=== PATIENT | female | born 1995 | race Caucasian/White ===

== ENCOUNTER 2016-10-11 03:44 | Emergency (ER) ==
[2016-10-11 04:22] VITALS: BP 126/82; TEMP 98.5; BMI 36.0
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
[2016-10-11] MEDS ORDERED: ZOFRAN 4 MG/2 ML IVP STA (05:02)
[2016-10-11] MEDS ORDERED: MORPHINE 4 MG/ML SYRINGE IVP STA (05:02)
[2016-10-11 05:26] LABS: SERUM PREGNANCY INTERNAL QC INTERNAL QC VALID
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
[2016-10-11 07:20] LABS: ALBUMIN 3.9 g/dL (3.4-5.0); ALBUMIN/GLOBULIN RATIO 1.3; ANION GAP 14.9; BILIRUBIN,TOTAL 0.48 mg/dL (0.00-1.20); BUN/CREATININE RATIO 13.4; CALCIUM 9.2 mg/dL (8.2-10.2); CREATININE 0.97 mg/dL (0.60-1.30); POTASSIUM 3.9 mmol/L (3.5-5.10); TOTAL PROTEIN 6.9 g/dL (6.4-8.2)
[2016-10-11] MEDS ORDERED: NEXT CHOICE ONE DOSE PO STA (08:24)
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
[2016-10-11 09:06] LABS: BASOPHILS # (AUTO) 0.1 K/uL (0-0.2); BASOPHILS % (AUTO) 0.4 % (0.0-3.0); EOSINOPHILS # (AUTO) 0.1 K/ul (0.0-0.7); EOSINOPHILS % (AUTO) 1.2 % (0.0-7.0); HEMATOCRIT 37.5 % (37.0-47.0); HEMOGLOBIN 12.6 g/dl (12.0-16.0); IMMATURE GRANULOCYTE % (AUTO) 0.3 % (0.0-5.0); LYMPHOCYTES # (AUTO) 2.1 K/uL (0.60-3.4); LYMPHOCYTES % (AUTO) 18.1 (10.0-50.0); MEAN CORPUSCULAR HEMOGLOBIN 29.4 pg (27.0-31.0); MEAN CORPUSCULAR HGB CONC 33.6 (31.8-35.4); MEAN CORPUSCULAR VOLUME 87.4 fl (81.0-99.0); MONOCYTES # (AUTO) 0.8 K/uL (0.4-2.0); MONOCYTES % (AUTO) 6.5 (0-10); NEUTROPHILS # (AUTO) 8.5 K/ul (2.0-6.9); NEUTROPHILS % (AUTO) 73.5; PLATELET COUNT 244 10^3/uL (140-440); RED BLOOD COUNT 4.29 10^6/ul (4.20-5.40); WHITE BLOOD COUNT 11.63 K/ul (4.6-10.2)
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
[2016-10-11] MEDS ORDERED: LIDOCAINE 1 % AMP 5 ML (SUTURES) IM STA (09:09)
[2016-10-11] MEDS ORDERED: ROCEPHIN IM STA (09:09)
[2016-10-11 09:12] LABS: BILIRUBIN,URINE Negative (NEGATIVE); KETONES,URINE Trace (NEGATIVE); LEUKOCYTE ESTERASE ,URINE Negative (NEGATIVE); NITRITE,URINE Negative (NEGATIVE); PH,URINE 5.5 (5-9); PROTEIN,URINE Negative (NEGATIVE); URINE, BLOOD Negative (NEGATIVE)
[2016-10-11 09:13] LABS: ADD URINE MICROSCOPIC NO
[2016-10-13 08:20] LABS: HIV ANTIBODIES QUALITATIVE NON REACTIVE (Nonreactive)
== END 2016-10-11 10:00 | disposition home or self-care (01) ==
LOC: ED 03:44
DX: T74.21XA Adult sexual abuse, confirmed, initial encounter (principal); S19.9XXA Unspecified injury of neck, initial encounter; S40.022A Contusion of left upper arm, initial encounter; S40.021A Contusion of right upper arm, initial encounter; S80.12XA Contusion of left lower leg, initial encounter; S80.11XA Contusion of right lower leg, initial encounter; S20.212A Contusion of left front wall of thorax, initial encounter; S20.02XA Contusion of left breast, initial encounter; R52 Pain, unspecified; Y07.01 Husband, perpetrator of maltreatment and neglect; Y04.2XXA Assault by strike against or bumped into by another person, initial encounter
CPT/HCPCS: 36415; 80053; 81001; 84703; 85025; 86701; 87800; 96374; 96375; 99285

== ENCOUNTER 2016-10-23 16:18 | Outpatient (CLI) ==
[2016-10-23 16:25] LABS: BILIRUBIN,URINE Negative (NEGATIVE); KETONES,URINE Negative (NEGATIVE); LEUKOCYTE ESTERASE ,URINE 2+ (NEGATIVE); NITRITE,URINE Negative (NEGATIVE); PH,URINE 5.5 (5-9); PROTEIN,URINE 1+ (NEGATIVE); URINE, BLOOD Trace-lysed (NEGATIVE)
[2016-10-23 16:29] LABS: ADD URINE MICROSCOPIC YES
[2016-10-23 16:30] LABS: BACTERIA,URINE 3+ (NOT PRESENT)
== END 2016-10-23 16:19 | disposition home or self-care (01) ==
LOC: LAB 16:18
PROVIDERS: ATTEND Nurse Practitioner Family
DX: N89.8 Other specified noninflammatory disorders of vagina (principal)
CPT/HCPCS: 81001; 87086; 87800

== ENCOUNTER 2017-02-19 19:00 | Emergency (ER) ==
[2017-02-19 19:01] VITALS: BMI 36.0
[2017-02-19 19:20] VITALS: BP 125/80; TEMP 98.5
[2017-02-19 19:29] LABS: BILIRUBIN,URINE Negative (NEGATIVE); KETONES,URINE Negative (NEGATIVE); LEUKOCYTE ESTERASE ,URINE Negative (NEGATIVE); NITRITE,URINE Negative (NEGATIVE); PH,URINE 6.5 (5-9); PROTEIN,URINE Negative (NEGATIVE); URINE, BLOOD Negative (NEGATIVE)
[2017-02-19 19:30] LABS: ADD URINE MICROSCOPIC NO; URINE PREGNANCY INTERNAL QC INTERNAL QC VALID
[2017-02-19 19:44] LABS: KOH PREP NO FUNGAL ELEMENTS (NOT PRESENT); WBC NONE SEEN (FEW)
[2017-02-19] MEDS ORDERED: ROCEPHIN IM STA (19:53)
[2017-02-19] MEDS ORDERED: LIDOCAINE 1 % AMP 5 ML (SUTURES) IM STA (19:53)
[2017-02-19] MEDS ORDERED: ZITHROMAX PO STA (19:53)
--- NOTE | 2017-02-19 19:56 | ED.PDOC ---
General ED Provider: Dr. 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 Exam - Vaginal Bleeding Complaint/Exam Onset/Duration: 3 days Symptoms Are: Still present Timing: Intermittent Initial Severity: Mild Current Severity: Mild Aggravating: Reports: None Alleviating: Reports: None Associated Signs and Symptoms: Denies: Dizziness, Lightheadedness, Pale, UTI symptoms, Abdominal pain, Cramping, Generalized pain Ectopic Risk Factors: Reports: None Patient Rh Status: Unknown Related Surgical History: Reports: None Abdominal Findings: Present: None Differential Diagnoses: Vaginitis Review of Systems - Review Of Systems Constitutional: Reports: No symptoms Eyes: Reports: No symptoms Ears, Nose, Mouth, Throat: Reports: No symptoms Respiratory: Reports: No symptoms Cardiac: Reports: No symptoms GI: Reports: No symptoms : Reports: No symptoms Musculoskeletal: Reports: No symptoms Skin: Reports: Lumps, Rash Neurological: Reports: No symptoms Endocrine: Reports: No symptoms Hematologic/Lymphatic: Reports: No symptoms All Other Systems: Reviewed and Negative Past Medical History - Past Medical History Previously Healthy: Yes Endocrine: Reports: None Cardiovascular: Reports: None Respiratory: Reports: None Hematological: Reports: None Gastrointestinal: Reports: None Genitourinary: Reports: None Neuro/Psych: Reports: None Musculoskeletal: Reports: None Cancer: Reports: None Last Menstrual Period: 5-6-17 WHICH WAS 1 WEEK LATE AND ONLY LASTED 3 DAYS, IS NORMALLY 5-6 DAYS - Surgical History General Surgical History: Reports: Unknown - Family History Family History: Reports: Unknown - Social History Smoking Status: Never smoker Hx Substance Use: No Alcohol Screening: None Lives: With family - Immunizations Tetanus Shot up to Date: Yes Physical Exam - Physical Exam Appearance: Well-appearing, No pain distress, Well-nourished Eyes: MIGUEL, EOMI, Conjunctiva clear ENT: Ears normal, Nose normal, Oropharynx normal Neck: Supple Respiratory: Airway patent, Breath sounds clear, Breath sounds equal, Respirations nonlabored Cardiovascular: RRR, Pulses normal, No rub, No murmur GI/: Soft, Nontender, No masses, Bowel sounds normal, No Organomegaly Musculoskeletal: Normal strength, ROM intact, No edema, No calf tenderness Skin: Warm, Dry, Normal color Neurological: Sensation intact, Motor intact, Reflexes intact, Cranial nerves intact, Alert, Oriented Psychiatric: Affect appropriate, Mood appropriate Critical Care Note - Critical Care Note Total Time (mins): 0 Course - Course Orders, Labs, Meds: Lab Review 02/19/17 02/19/17 19:15 19:37 Urine Color Yellow Urine Clarity Clear Urine pH 6.5 Ur Specific Downs 1.020 Urine Protein Negative Urine Glucose (UA) Negative Urine Ketones Negative Urine Blood Negative Urine Nitrite Negative Urine Bilirubin Negative Urine Urobilinogen 1.0 Ur Leukocyte Esterase Negative Urine Test Negative Clue Cells (Wet Prep) None seen Trichomonas (Wet Prep) None seen Vaginal WBC None seen CHRISTINE Preparation No fungal elements Orders Category Date Time Status CHRISTINE PREP Stat LAB 02/19/17 19:37 Completed UA [URINALYSIS C & S IF INDICATED] Stat LAB 02/19/17 19:15 Completed URINE Stat LAB 02/19/17 19:15 Completed WET PREP Stat LAB 02/19/17 19:37 Completed Azithromycin [Zithromax] MEDS 02/19/17 19:53 Discontinued 1,000 mg PO ONCE STA Ceftriaxone Sodium [Rocephin] MEDS 02/19/17 19:53 Discontinued 250 mg IM ONCE STA Lidocaine HCl/Pf [Lidocaine 1 % Amp 5 ml (Sutures)] MEDS 02/19/17 19:53 Discontinued 0.9 ml IM ONCE STA Medications Discontinued Medications Generic Name Dose Route Start Last Admin Trade Name Freq PRN Reason Stop Dose Admin Azithromycin 1,000 mg 02/19/17 19:53 Zithromax PO 02/19/17 19:54 ONCE STA Ceftriaxone Sodium 250 mg 02/19/17 19:53 Rocephin IM 02/19/17 19:54 ONCE STA Lidocaine HCl 0.9 ml 02/19/17 19:53 Lidocaine 1 % Amp 5 Ml (Sutures) IM 02/19/17 19:54 ONCE STA Vital Signs: Temp Pulse Resp BP Pulse Ox 02/19/17 19:01 98.5 F 71 16 125/80 96 Departure - Departure Time of Disposition: 19:56 Disposition: HOME SELF-CARE Discharge Problem: Vaginal discharge Instructions: Vaginitis (ED) Condition: Good Pt referred to PMD for follow-up: Yes Additional Instructions: flagyl 250mg tid x 7days plus terazol vag supp qhs x 3 days---f/u with [facility] Allergies/Adverse Reactions: Allergies Latex, Natural Rubber Adverse Reaction (Verified 02/19/17 19:10) BREAK OUT Home Medications: Ambulatory Orders 1 [No Reported Medications] 02/19/17 Disposition Discussed With: Patient
== END 2017-02-19 20:11 | disposition home or self-care (01) ==
LOC: ED 19:00
DX: N89.8 Other specified noninflammatory disorders of vagina (principal)
CPT/HCPCS: 81001; 81025; 87210; 96372; 99283

== ENCOUNTER 2017-05-11 14:57 | Emergency (ER) ==
[2017-05-11 14:57] VITALS: BMI 36.0
[2017-05-11 15:03] VITALS: BP 132/75; TEMP 98.7
--- NOTE | 2017-05-11 15:27 | ED.PDOC ---
General ED Provider: Dr. ARYAN MCCRARY Chief Complaint: Sore Throat Stated Complaint: sore throat Time Seen by Physician: 15:00 Mode of Arrival: Walk-In Information Source: Patient Exam Limitations: No limitations Primary Care Provider: DEBORAH ZAMORANO Nursing and Triage Documentation Reviewed and Agree: Yes EENT Complaint Exam - Throat Complaint/Exam Symptoms Are: Still present Timimg: Constant Initial Severity: Moderate Current Severity: Moderate Aggravating: Reports: Eating Alleviating: Reports: None Associated Signs and Symptoms: Denies: Fever, Dysphagia, Drooling, Foreign body sensation, Chills, Cough, Wheezing, Hoarseness, Sinus discomfort, Nasal congestion, Difficulty breathing, Lethargy, Irritability, Decreased activity, Vomiting, Diarrhea, Decreased hearing, Ear drainage Uvula Midline: Yes Chery-tonsillar Fluctuence: No Scarlatinaform Rash Present: No Stridor Present: No Sinus Tenderness Present: No Tonsillar Hypertrophy Present: No Tonsillar Exudate Present: No Chery-tonsillar Swelling Present: No Adenopathy Present: No Splenomegaly Present: No Review of Systems - Review Of Systems Constitutional: Reports: No symptoms Eyes: Reports: No symptoms Ears, Nose, Mouth, Throat: Reports: Throat pain Respiratory: Reports: No symptoms Cardiac: Reports: No symptoms GI: Reports: No symptoms : Reports: No symptoms Musculoskeletal: Reports: No symptoms Skin: Reports: No symptoms Neurological: Reports: No symptoms Endocrine: Reports: No symptoms Hematologic/Lymphatic: Reports: No symptoms All Other Systems: Reviewed and Negative Past Medical History - Past Medical History Previously Healthy: Yes Endocrine: Reports: None Cardiovascular: Reports: None Respiratory: Reports: None Hematological: Reports: None Gastrointestinal: Reports: None Genitourinary: Reports: None Neuro/Psych: Reports: None Musculoskeletal: Reports: None Cancer: Reports: None Last Menstrual Period: unsure - Surgical History General Surgical History: Reports: Unknown - Family History Family History: Reports: Unknown - Social History Smoking Status: Never smoker Hx Substance Use: No Alcohol Screening: None - Immunizations Tetanus Shot up to Date: Yes Physical Exam - Physical Exam Appearance: Well-appearing, No pain distress, Well-nourished Eyes: MIGUEL, EOMI, Conjunctiva clear ENT: Erythema, Exudate Respiratory: Airway patent, Breath sounds clear, Breath sounds equal, Respirations nonlabored Cardiovascular: RRR, Pulses normal, No rub, No murmur GI/: Soft, Nontender, No masses, Bowel sounds normal, No Organomegaly Musculoskeletal: Normal strength, ROM intact, No edema, No calf tenderness Skin: Warm, Dry, Normal color Neurological: Sensation intact, Motor intact, Reflexes intact, Cranial nerves intact, Alert, Oriented Psychiatric: Affect appropriate, Mood appropriate Critical Care Note - Critical Care Note Total Time (mins): 0 Course - Course Vital Signs: Temp Pulse Resp BP Pulse Ox 05/11/17 14:57 98.7 F 18 L 16 132/75 97 Departure - Departure Time of Disposition: 15:33 Disposition: HOME SELF-CARE Discharge Problem: Sore throat symptom Pharyngitis Qualifiers: Pharyngitis/tonsillitis etiology: unspecified etiology Qualifier Code: (J02.9) Acute pharyngitis, unspecified Instructions: Pharyngitis (ED) Condition: Good Pt referred to PMD for follow-up: Yes Additional Instructions: Please call your Family Physician as soon as possible to schedule a follow-up appointment. Allergies/Adverse Reactions: Allergies Latex, Natural Rubber Adverse Reaction (Verified 02/19/17 19:10) BREAK OUT Home Medications: Ambulatory Orders 1 [No Reported Medications] 02/19/17 Disposition Discussed With: Patient
== END 2017-05-11 15:38 | disposition home or self-care (01) ==
LOC: ED 14:57
DX: J02.9 Acute pharyngitis, unspecified (principal)
CPT/HCPCS: 99282

== ENCOUNTER 2018-01-07 11:49 | Emergency (ER) ==
[2018-01-07 11:53] VITALS: BP 142/82; TEMP 97.9; BMI 35.9
--- NOTE | 2018-01-07 13:55 | CT ---
EXAM: CT cervical spine without contrast. HISTORY: Neck pain COMPARISON: CT cervical spine 10/11/2016 TECHNIQUE: Serial axial images of the cervical spine were obtained from the skull base through the l bryant apices without contrast. These were viewed in multiple planes. FINDINGS: Vertebral bodies demonstrate normal height, disc space and alignment. There is straighten ing of the cervical spine. There is no acute compression fracture or subluxation. The facets and po sterior processes are normal. The odontoid process is unremarkable. The C1 ring is intact. The art iculation of C1 and odontoid process is unremarkable. There is mild mucosal thickening in the left ma xillary sinus. The soft tissues are unremarkable. IMPRESSION: 1. No acute compression fracture or subluxation of the cervical spine. 2. Mild straightening of the cervical spine may be positioning versus muscle spasm. 3. Mild layering fluid in the low left maxillary sinus.
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
== END 2018-01-07 14:17 | disposition home or self-care (01) ==
LOC: ED 11:49
DX: M54.2 Cervicalgia (principal); R51 Headache; S09.92XA Unspecified injury of nose, initial encounter; V89.2XXA Person injured in unspecified motor-vehicle accident, traffic, initial encounter
CPT/HCPCS: 36415; 80053; 81001; 84703; 85025; 99283

== ENCOUNTER 2018-05-31 15:02 | Emergency (ER) ==
[2018-05-31 15:09] VITALS: BP 129/88; TEMP 98.4; BMI 38.1
--- NOTE | 2018-05-31 15:18 | ED.PDOC ---
General ED Provider: Dr. ARYAN MCCRARY Chief Complaint: Rash Stated Complaint: rash Time Seen by Physician: 15:00 Mode of Arrival: Walk-In Information Source: Patient Exam Limitations: No limitations Primary Care Provider: DEBORAH ZAMORANO Nursing and Triage Documentation Reviewed and Agree: Yes Does patient meet sepsis criteria?: No If yes, has appropriate treatment been initiated?: No System Inflammatory Response Syndrome: Not Applicable Sepsis Protocol: For patient's 13 years and over: Temp is 96.8 and below OR 101 and greater Pulse >90 BPM Resp >20/minute Acutely Altered Mental Status Are patient's symptoms suggestive of a new infection, such as: -Pneumonia -Skin, Soft Tissue -Endocarditis -UTI -Bone, Joint Infection -Implantable Device -Acute Abdominal Infection -Wound Infection -Meningitis -Blood Stream Catheter Infection -Unknown Skin Complaint Exam - Skin Rash/Itching Complaint/Exam Onset/Duration: see photos x 2 days Symptoms Are: Still present Initial Severity: Mild Current Severity: Mild Potential Exposures: Reports: Unknown Aggravating: Reports: None Alleviating: Reports: None Associated Signs and Symptoms: Denies: Difficulty breathing, Fever, Chills Skin Findings: Present: Urticaria Differential Diagnoses: Allergic Reaction, Poison [place], Urticaria Review of Systems - Review Of Systems Constitutional: Reports: No symptoms Eyes: Reports: No symptoms Ears, Nose, Mouth, Throat: Reports: No symptoms Respiratory: Reports: No symptoms Cardiac: Reports: No symptoms GI: Reports: No symptoms : Reports: No symptoms Musculoskeletal: Reports: No symptoms Skin: Reports: Rash Neurological: Reports: No symptoms Endocrine: Reports: No symptoms Hematologic/Lymphatic: Reports: No symptoms All Other Systems: Reviewed and Negative Past Medical History - Past Medical History Previously Healthy: Yes Endocrine: Reports: None Cardiovascular: Reports: None Respiratory: Reports: None Hematological: Reports: None Gastrointestinal: Reports: None Genitourinary: Reports: None Neuro/Psych: Reports: None Musculoskeletal: Reports: None Cancer: Reports: None Last Menstrual Period: 2 days - Surgical History General Surgical History: Reports: Unknown - Family History Family History: Reports: Unknown - Social History Smoking Status: Never smoker Hx Substance Use: No Alcohol Screening: None Physical Exam - Physical Exam Appearance: Well-appearing, No pain distress, Well-nourished Eyes: MIGUEL, EOMI, Conjunctiva clear ENT: Ears normal, Nose normal, Oropharynx normal Respiratory: Airway patent, Breath sounds clear, Breath sounds equal, Respirations nonlabored Cardiovascular: RRR, Pulses normal, No rub, No murmur GI/: Soft, Nontender, No masses, Bowel sounds normal, No Organomegaly Musculoskeletal: Normal strength, ROM intact, No edema, No calf tenderness Skin: Warm, Dry (maculopapular rash see photos) Neurological: Sensation intact, Motor intact, Reflexes intact, Cranial nerves intact, Alert, Oriented Psychiatric: Affect appropriate, Mood appropriate Critical Care Note - Critical Care Note Total Time (mins): 0 Course - Course Vital Signs: Temp Pulse Resp BP Pulse Ox 05/31/18 15:03 98.4 F 78 20 129/88 98 Departure - Departure Time of Disposition: 15:18 (seen at all times with PARESH SUAREZ) Disposition: HOME SELF-CARE Discharge Problem: Pruritic rash Instructions: Urticaria (ED) Condition: Good Pt referred to PMD for follow-up: Yes IPMP verified?: No Additional Instructions: Please call your Family Physician as soon as possible to schedule a follow-up appointment. Allergies/Adverse Reactions: Allergies Latex, Natural Rubber Adverse Reaction (Verified 05/31/18 15:10) BREAK OUT Home Medications: Ambulatory Orders Amoxicillin [Amoxil] 500 mg PO Q8HR 05/31/18 Disposition Discussed With: Patient
== END 2018-05-31 15:34 | disposition home or self-care (01) ==
LOC: ED 15:02
DX: R21 Rash and other nonspecific skin eruption (principal); L29.9 Pruritus, unspecified
CPT/HCPCS: 99282

== ENCOUNTER 2018-08-11 20:24 | Emergency (ER) ==
[2018-08-11 20:35] VITALS: BP 127/93; TEMP 99.3; BMI 38.8
[2018-08-11] MEDS ORDERED: PYRIDIUM PO STA (20:46)
[2018-08-11] MEDS ORDERED: ZITHROMAX PO STA (20:49)
--- NOTE | 2018-08-11 20:53 | ED.PDOC ---
General ED Provider: Dr. ALBERT DOMINGO Chief Complaint: Urinary Problem Stated Complaint: Patient is a 23 year old female who complains of Buring on urination and suprapubic pain for the past two days. States that her told her that he is being treated for chlamydia Time Seen by Physician: 20:47 Mode of Arrival: Walk-In Information Source: Patient Exam Limitations: No limitations Primary Care Provider: DEBORAH ZAMORANO Nursing and Triage Documentation Reviewed and Agree: Yes Does patient meet sepsis criteria?: No System Inflammatory Response Syndrome: Not Applicable Sepsis Protocol: For patient's 13 years and over: Temp is 96.8 and below OR 101 and greater Pulse >90 BPM Resp >20/minute Acutely Altered Mental Status Are patient's symptoms suggestive of a new infection, such as: -Pneumonia -Skin, Soft Tissue -Endocarditis -UTI -Bone, Joint Infection -Implantable Device -Acute Abdominal Infection -Wound Infection -Meningitis -Blood Stream Catheter Infection -Unknown Complaint Exam - UTI Female Complaint/Exam Patient Complains of: Reports: Painful urination Onset/Duration: 2 days Symptoms Are: Still present Timing: Constant Initial Severity: Moderate Current Severity: Moderate Location of Pain: Reports: Suprapubic Associated Signs and Symptoms: Denies: Fever, Chills, Flank pain, Dyspareunia, Vaginal discharge Patient Rh Status: Unknown CVA Tenderness: No Suprapubic Tenderness: No Differential Diagnoses: STD Review of Systems - Review Of Systems Constitutional: Reports: No symptoms Eyes: Reports: No symptoms Ears, Nose, Mouth, Throat: Reports: No symptoms Respiratory: Reports: No symptoms GI: Reports: Abdominal pain (suprapubic ) : Reports: Burning, Dysuria Skin: Reports: No symptoms Neurological: Reports: Anxiety All Other Systems: Reviewed and Negative Past Medical History - Past Medical History Previously Healthy: Yes Endocrine: Reports: None Cardiovascular: Reports: None Respiratory: Reports: None Hematological: Reports: None Gastrointestinal: Reports: None Genitourinary: Reports: None Neuro/Psych: Reports: None Musculoskeletal: Reports: None Cancer: Reports: None Last Menstrual Period: 07/24/18 - Surgical History General Surgical History: Reports: Tonsillectomy - Family History Family History: Reports: Unknown - Social History Smoking Status: Never smoker Hx Substance Use: No Alcohol Screening: None - Immunizations Tetanus Shot up to Date: Yes Physical Exam - Physical Exam Appearance: Obese Pain Distress: Mild Neck: Supple Respiratory: Airway patent, Breath sounds clear, Breath sounds equal, Respirations nonlabored Cardiovascular: RRR, Pulses normal, No rub, No murmur GI/: Soft, Nontender, No masses, Bowel sounds normal, No Organomegaly Musculoskeletal: Normal strength, ROM intact, No edema, No calf tenderness Skin: Warm, Dry, Normal color Neurological: Sensation intact, Motor intact, Reflexes intact, Cranial nerves intact, Alert, Oriented Psychiatric: Anxious Critical Care Note - Critical Care Note Total Time (mins): 0 Course - Course Orders, Labs, Meds: Lab Review 08/11/18 08/11/18 20:40 20:40 Urine Color Yellow Urine Clarity Cloudy Urine pH 5.5 Ur Specific [place] >=1.030 Urine Protein 1+ Urine Glucose (UA) Negative Urine Ketones Negative Urine Blood 1+ Urine Nitrite Negative Urine Bilirubin Negative Urine Urobilinogen 0.2 Ur Leukocyte Esterase 2+ Urine Microscopic RBC 5-10 Urine Microscopic WBC 10-20 Ur Squamous Epith Cells 0-2 Urine Bacteria Trace Urine Test Negative Orders Category Date Time Status CHLAMYDIA/GC AMPLIFICATION Stat LAB 08/11/18 20:40 Received URINALYSIS C & S IF INDICATED Stat LAB 08/11/18 20:40 Completed URINE CULTURE Stat LAB 08/11/18 21:01 Received URINE Stat LAB 08/11/18 20:40 Completed Azithromycin [Zithromax] MEDS 08/11/18 20:49 Discontinued 1,000 mg PO ONCE STA Nitrofurantoin Monohyd/M-Cryst [Macrobid] MEDS 08/11/18 21:21 Stat 100 mg PO ONCE STA Phenazopyridine HCl [Pyridium] MEDS 08/11/18 20:46 Discontinued 100 mg PO ONCE STA Medications Discontinued Medications Generic Name Dose Route Start Last Admin Trade Name Freq PRN Reason Stop Dose Admin Azithromycin 1,000 mg 08/11/18 20:49 08/11/18 20:53 Zithromax PO 08/11/18 20:50 1,000 mg ONCE STA Administration Phenazopyridine HCl 100 mg 08/11/18 20:46 08/11/18 20:53 Pyridium PO 08/11/18 20:47 100 mg ONCE STA Administration Vital Signs: Temp Pulse Resp BP Pulse Ox 08/11/18 20:25 99.3 F 89 18 127/93 H 97 Departure - Departure Time of Disposition: 21:34 Disposition: HOME SELF-CARE Discharge Problem: Urinary symptoms, Chlamydia contact, untreated Instructions: Urinary Tract Infection in Women (ED), Chlamydia (ED) Condition: Stable Pt referred to PMD for follow-up: Yes IPMP verified?: No Additional Instructions: Take Medications as prescribed Follow up with PCP in 3 days Prescriptions: Nitrofurantoin Monohyd/M-Cryst [Macrobid] 100 mg PO BID #14 capsule Phenazopyridine HCl [Pyridium] 100 mg PO TID PRN #10 tablet PRN Reason: Urinary Burning. Allergies/Adverse Reactions: Allergies Latex, Natural Rubber Adverse Reaction (Verified 05/31/18 15:10) BREAK OUT Penicillins Adverse Reaction (Verified 08/11/18 20:35) Hives Home Medications: Ambulatory Orders Nitrofurantoin Monohyd/M-Cryst [Macrobid] 100 mg PO BID #14 capsule 08/11/18 Phenazopyridine HCl [Pyridium] 100 mg PO TID PRN #10 tablet 08/11/18 Disposition Discussed With: Patient
[2018-08-11 20:55] LABS: URINE PREGNANCY TEST NEGATIVE (NEGATIVE)
[2018-08-11] MEDS ORDERED: MACROBID PO STA (21:21)
== END 2018-08-11 21:33 | disposition home or self-care (01) ==
LOC: ED 20:24
DX: N39.0 Urinary tract infection, site not specified (principal); Z20.2 Contact with and (suspected) exposure to infections with a predominantly sexual mode of transmission
CPT/HCPCS: 36415; 81001; 81025; 87086; 87800; 99283

== ENCOUNTER 2019-01-23 21:27 | Emergency (ER) | payer MEDICAID, OTHER ==
[2019-01-23 21:40] VITALS: BP 119/77; TEMP 98; BMI 41.7
[2019-01-23] MEDS ORDERED: TORADOL PO STA (22:07)
--- NOTE | 2019-01-23 22:07 | ED.PDOC ---
General ED Provider: Dr. OMAR WILKINSON Chief Complaint: Back Pain Stated Complaint: 23 y old patient apparently traveling through with chronic lower back pain. She also needs an inhaler for asthma Time Seen by Physician: 21:40 Mode of Arrival: Walk-In Information Source: Patient Exam Limitations: No limitations Primary Care Provider: DEBORAH ZAMORANO Nursing and Triage Documentation Reviewed and Agree: Yes Does patient meet sepsis criteria?: No System Inflammatory Response Syndrome: Not Applicable Sepsis Protocol: For patient's 13 years and over: Temp is 96.8 and below OR 101 and greater Pulse >90 BPM Resp >20/minute Acutely Altered Mental Status Are patient's symptoms suggestive of a new infection, such as: -Pneumonia -Skin, Soft Tissue -Endocarditis -UTI -Bone, Joint Infection -Implantable Device -Acute Abdominal Infection -Wound Infection -Meningitis -Blood Stream Catheter Infection -Unknown Musculoskeletal Complaint Exam - Back Pain Complaint/Exam Onset/Duration: chronic but worse during driving today Timing: Intermittent Episodes Lasting: Hours Initial Severity: Moderate Current Severity: Mild Location: Reports: Discrete Character: Reports: Aching Aggravating: Reports: Movements Alleviating: Reports: Rest Related History: Reports: Similar episode TAD Risk Factors: Reports: None AAA Risk Factors: Reports: None Cauda Equina Risk Factors: Reports: None Epidural Abcess Risk Factors: Reports: None Related Surgical History: Reports: None Focal Tenderness: No Paraspinal Muscle Tenderness: No Paraspinal Muscle Spasm: No Scoliosis: No Lordosis: No Kyphosis: No Focal Weakness: Present: None Focal Sensory Loss: Present: None Gait: Present: Normal Differential Diagnoses: Strain, Sprain, Other Review of Systems - Review Of Systems Constitutional: Reports: No symptoms Ears, Nose, Mouth, Throat: Reports: No symptoms Respiratory: Reports: No symptoms Cardiac: Reports: No symptoms GI: Reports: No symptoms : Reports: No symptoms Musculoskeletal: Reports: Back pain Skin: Reports: No symptoms Neurological: Reports: No symptoms Endocrine: Reports: No symptoms Hematologic/Lymphatic: Reports: No symptoms All Other Systems: Reviewed and Negative Past Medical History - Past Medical History Previously Healthy: Yes Endocrine: Reports: None Cardiovascular: Reports: None Respiratory: Reports: None Hematological: Reports: None Gastrointestinal: Reports: None Genitourinary: Reports: None Neuro/Psych: Reports: None Musculoskeletal: Reports: None Cancer: Reports: None Last Menstrual Period: 3 weeks ago - Surgical History General Surgical History: Reports: Tonsillectomy - Family History Family History: Reports: Unknown - Social History Smoking Status: Never smoker Hx Substance Use: No Alcohol Screening: None - Immunizations Tetanus Shot up to Date: Yes (2 yrs ago) Physical Exam - Physical Exam Appearance: Well-appearing Ill-appearing: None Pain Distress: None Eyes: MIGUEL ENT: Ears normal Neck: Supple Respiratory: Airway patent, Breath sounds diminished Cardiovascular: Pulses normal, Tachycardia GI/: Soft, Nontender, No masses Musculoskeletal: Normal strength Skin: Warm, Dry Neurological: Sensation intact Psychiatric: Affect appropriate Critical Care Note - Critical Care Note Total Time (mins): 0 Course - Course Orders, Labs, Meds: Orders Category Date Time Status Ketorolac Tromethamine [Toradol] MEDS 01/23/19 22:07 Discontinued 20 mg PO ONCE STA Medications Discontinued Medications Generic Name Dose Route Start Last Admin Trade Name Freq PRN Reason Stop Dose Admin Ketorolac Tromethamine 20 mg 01/23/19 22:07 Toradol PO 01/23/19 22:08 ONCE STA Vital Signs: Temp Pulse Resp BP Pulse Ox 01/23/19 21:28 98 F 69 20 119/77 98 Departure - Departure Time of Disposition: 22:16 Disposition: HOME SELF-CARE Discharge Problem: Lower back pain Instructions: Asthma (ED) Condition: Good Pt referred to PMD for follow-up: Yes IPMP verified?: No Additional Instructions: Use Budesonide as prescribed daily Allergies/Adverse Reactions: Allergies Latex, Natural Rubber Adverse Reaction (Verified 01/23/19 21:40) BREAK OUT Penicillins Adverse Reaction (Verified 01/23/19 21:40) Hives Home Medications: Ambulatory Orders Ibuprofen 800 mg PO BID 01/23/19 Metformin HCl [Glucophage] 500 mg PO BIDWM PRN 01/23/19 Disposition Discussed With: Patient
== END 2019-01-23 22:35 | disposition home or self-care (01) ==
LOC: ED 21:27
DX: M54.5 Low back pain (principal); G89.29 Other chronic pain; J45.909 Unspecified asthma, uncomplicated
CPT/HCPCS: 99282

== ENCOUNTER 2019-02-09 10:46 | Emergency (ER) ==
[2019-02-09 10:50] VITALS: BP 159/78; TEMP 99.2; BMI 40.7
[2019-02-09] MEDS ORDERED: TORADOL IM STA (11:08)
--- NOTE | 2019-02-09 11:08 | ED.PDOC ---
General ED Provider: Dr. OMAR WILKINSON Chief Complaint: Back Pain Stated Complaint: 23 y old female,overweight for age and height developed right sided pain. inr lower back L-S region,gluteal teritury on the same side and continuing towards the right kne and lower thigh.Charline pyriformic tenderness on that side,Pain is not traveling below the knee.She can not contrinue workubg today because og limitation in agility and mobility.No other signs or symptoms. Time Seen by Physician: 10:55 Mode of Arrival: Walk-In Information Source: Patient Exam Limitations: No limitations Primary Care Provider: DEBORAH ZAMORANO Nursing and Triage Documentation Reviewed and Agree: Yes Does patient meet sepsis criteria?: No System Inflammatory Response Syndrome: Not Applicable Sepsis Protocol: For patient's 13 years and over: Temp is 96.8 and below OR 101 and greater Pulse >90 BPM Resp >20/minute Acutely Altered Mental Status Are patient's symptoms suggestive of a new infection, such as: -Pneumonia -Skin, Soft Tissue -Endocarditis -UTI -Bone, Joint Infection -Implantable Device -Acute Abdominal Infection -Wound Infection -Meningitis -Blood Stream Catheter Infection -Unknown Musculoskeletal Complaint Exam - Back Pain Complaint/Exam Onset/Duration: today at am at work Symptoms Are: Still present Timing: Constant Episodes Lasting: Hours Initial Severity: Moderate Current Severity: Moderate Location: Reports: Discrete Character: Reports: Aching Aggravating: Reports: Bending, Walking Alleviating: Reports: Rest Associated Signs and Symptoms: Reports: Weakness, Pain with weight bearing Related History: Reports: Similar episode TAD Risk Factors: Reports: Hypertension AAA Risk Factors: Reports: None Cauda Equina Risk Factors: Reports: None Epidural Abcess Risk Factors: Reports: None Related Surgical History: Reports: None Focal Tenderness: No Paraspinal Muscle Tenderness: Yes Paraspinal Muscle Spasm: Yes Scoliosis: No Lordosis: No Kyphosis: No Focal Weakness: Present: None Focal Sensory Loss: Present: None Gait: Present: Unable Differential Diagnoses: Strain, Sprain, Other Review of Systems - Review Of Systems Constitutional: Reports: No symptoms Eyes: Reports: No symptoms Ears, Nose, Mouth, Throat: Reports: No symptoms Respiratory: Reports: No symptoms Cardiac: Reports: No symptoms GI: Reports: No symptoms : Reports: No symptoms Musculoskeletal: Reports: Back pain, Muscle pain, Muscle stiffness Skin: Reports: No symptoms Neurological: Reports: No symptoms Endocrine: Reports: No symptoms Hematologic/Lymphatic: Reports: No symptoms All Other Systems: Reviewed and Negative Past Medical History - Past Medical History Previously Healthy: Yes Endocrine: Reports: None Cardiovascular: Reports: None Respiratory: Reports: None Hematological: Reports: None Gastrointestinal: Reports: None Genitourinary: Reports: None Neuro/Psych: Reports: None Musculoskeletal: Reports: None Cancer: Reports: None Last Menstrual Period: now - Surgical History General Surgical History: Reports: Tonsillectomy - Family History Family History: Reports: Unknown - Social History Smoking Status: Never smoker Hx Substance Use: No Alcohol Screening: None Physical Exam - Physical Exam Appearance: Well-appearing Ill-appearing: Mild Pain Distress: Moderate Eyes: MIGUEL, EOMI, Conjunctiva clear ENT: Ears normal, Nose normal, Oropharynx normal Neck: Supple Respiratory: Airway patent, Breath sounds clear, Breath sounds equal Cardiovascular: RRR, Pulses normal, No rub GI/: Soft, Nontender Musculoskeletal: Normal strength, ROM intact Skin: Warm, Dry Neurological: Sensation intact Psychiatric: Affect appropriate Interpretation - Radiology Interpretation Radiology Interpretation By: Radiologist Radiology Results: No acute changes Exam Interpreted: Other (LS x ray) Xray Comments: LS X mil;d discogenic degenerative changes [id number] Critical Care Note - Critical Care Note Total Time (mins): 0 Course - Course Orders, Labs, Meds: Lab Review 02/09/19 11:05 Urine Test Negative Orders Category Date Time Status CRUTCHES [ED CRUTCHES] .ONCE EMERGENCY 02/09/19 11:14 Active URINE Stat LAB 02/09/19 11:05 Completed Ketorolac Tromethamine [Toradol] MEDS 02/09/19 11:08 Discontinued 60 mg IM ONCE STA Prednisone MEDS 02/09/19 11:12 Discontinued 20 mg PO ONCE STA LUMBAR SP. COMP. WITH BENDING Stat RADS 02/09/19 11:09 Completed Medications Discontinued Medications Generic Name Dose Route Start Last Admin Trade Name Tim PRN Reason Stop Dose Admin Ketorolac Tromethamine 60 mg 02/09/19 11:08 02/09/19 11:22 Toradol IM 02/09/19 11:09 60 mg ONCE STA Administration Prednisone 20 mg 02/09/19 11:12 02/09/19 11:20 Prednisone PO 02/09/19 11:13 20 mg ONCE STA Administration Vital Signs: Temp Pulse Resp BP Pulse Ox 02/09/19 10:47 99.2 F 95 H 20 159/78 H 95 Departure - Departure Time of Disposition: 12:13 Disposition: HOME SELF-CARE Discharge Problem: Back pain Instructions: Lower Back Exercises (ED), Weight Loss Tips for Athletes (ED) Condition: Fair Pt referred to PMD for follow-up: Yes IPMP verified?: No Additional Instructions: Prednisone 40 mg QD x 5 days,Flexeril 10 mg BID x 3 days,Ultram 50mg tab 1Tab q 6H prn #10 tab. Allergies/Adverse Reactions: Allergies Latex, Natural Rubber Adverse Reaction (Verified 02/09/19 10:50) BREAK OUT Penicillins Adverse Reaction (Verified 02/09/19 10:50) Hives Home Medications: Ambulatory Orders Ibuprofen 800 mg PO BID 01/23/19 Metformin HCl [Glucophage] 500 mg PO BIDWM PRN 01/23/19 Disposition Discussed With: Patient
[2019-02-09] MEDS ORDERED: PREDNISONE PO STA (11:12)
[2019-02-09 11:17] LABS: URINE PREGNANCY TEST NEGATIVE (NEGATIVE)
--- NOTE | 2019-02-09 12:07 | DI ---
EXAM: Lumbar spine seven views, including oblique views and flexion and extension lateral views HISTORY: Back pain, lower back COMPARISON: None TECHNIQUE: Seven views lumbar spine were performed, including oblique views and flexion and extensio n lateral views FINDINGS: Sacroiliac joints intact. Sacral arcuate lines intact. Vertebral bodies normal height. No fracture. Mild multilevel intervertebral disc space narrowing L4-L5, L5-S1. No spondylolisthesis in neutral position or flexion or extension. IMPRESSION: Mild chronic discogenic degenerative disease.
== END 2019-02-09 12:21 | disposition home or self-care (01) ==
LOC: ED 10:46
DX: M54.9 Dorsalgia, unspecified (principal); R53.1 Weakness
CPT/HCPCS: 81025; 96372; 99283